=== PATIENT | female | born 1970 | race Two or more races ===

== ENCOUNTER 2020-02-18 02:31 | Emergency (ER) | payer SELFPAY ==
[~2020-02-18] VITALS: Ht 152.4 cm; Wt 60.7 kg
--- NOTE | 2020-02-18 02:55 | PHYS DOC ---
Past Medical History Past Medical History: Hypertension Past Surgical History: No Surgical History Smoking Status: Current Every Day Smoker Alcohol Use: None General Adult EDM: Chief Complaint: MULTIPLE COMPLAINTS HPI: HPI: Patient is a 49 year old female presents to the ED with a chief complaint of racing heart and anxiety. 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 Patient de scribes her symptoms as feeling her pulse in her head and shortness of breath. Patient denies fever, chills, nausea, vomiting, chest pain. Patient states that she is currently on her menstrual cycle. Patient also states that she had an alcoholic drink with her sister and is not sure what it is. Review of Systems: Review of Systems: Constitutional: Denies fever or chills. [] Eyes: Denies change in visual acuity. [] HENT: Denies nasal congestion or sore throat. [] Respiratory: Denies cough or shortness of breath. [] Cardiovascular: Denies chest pain or edema. Complains of palpitations [] GI: Denies abdominal pain, nausea, vomiting, bloody stools or diarrhea. [] : Denies dysuria. [] Psych: Patient complains of anxiety Heart Score: Risk Factors: Risk Factors: DM, Current or recent (<one month) smoker, HTN, HLP, family history of CAD, obesity. Risk Scores: Score 0 - 3: 2.5% MACE over next 6 weeks - Discharge Home Score 4 - 6: 20.3% MACE over next 6 weeks - Admit for Clinical Observation Score 7 - 10: 72.7% MACE over next 6 weeks - Early Invasive Strategies Physical Exam: PE: Constitutional: Well developed, well nourished, no acute distress, non-toxic appearance. [] HENT: Normocephalic, atraumatic Eyes: EOMI Neck: Normal range of motion Cardiovascular:Heart rate regular rhythm Lungs & Thorax: Bilateral breath sounds clear to auscultation [] Abdomen: Bowel sounds normal, soft, no tenderness Extremities: No tenderness, ROM intact Neurologic: Alert and oriented X 3 Current Patient Data: Vital Signs: Vital Signs Date Time Temp Pulse Resp B/P (MAP) Pulse Ox O2 Delivery O2 Flow Rate FiO2 7/8/20 02:42 98.1 95 16 157/69 (98) 100 Room Air 98.1 EKG: EKG: [EKG interpretation: 2: 58 AM on 02/18/2020 HR: 89 Sinus rhythm Regular intervals Normal axis Nonspecific ST changes No STEMI] Radiology/Procedures: Radiology/Procedures: [] Impression: CXR IMPRESSION: No acute cardiopulmonary process. Course & Med Decision Making: Course & Med Decision Making Pertinent Labs and Imaging studies reviewed. (See chart for details) Ordered labs, chest x-ray, EKG, troponin. Currently patient's heart rate is 92 and oxygen saturation is 100% on room air. EKG does not show any acute changes. Chest x-ray does not show any acute disease. Labs show the patient has hemoglobin of 8.6. She also has low hematocrit. Platelets are elevated. Patient does state that she has a history of chronic anemia. Denies blood in her stool or urine Patient states that she is feeling better now. Instructed patient to follow-up with her PCP for further evaluation of her anemia. Patient does state that she has heavy menstrual cycle. We will give patient prescription for iron supplements. Discussed results and plan of care with patient. Patient is instructed to follow up with PCP in one to 2 days. Appropriate discharge instructions given to patient to return to the ED or to seek immediate medical evaluation. Patient is instructed to return to the ED if symptoms worsen or if any concerns. Dragon Disclaimer: Rakesh Disclaimer: This electronic medical record was generated, in whole or in part, using a voice recognition dictation system. Departure Departure Impression: Primary Impression: Chronic anemia Disposition: HOME, SELF-CARE Condition: GOOD Referrals: NO PCP (PCP) Patient Instructions: Anemia, FAQs, Iron Deficiency Anemia Additional Instructions: Discussed results and plan of care with patient. Patient is instructed to follow up with PCP in one to 2 days. Appropriate discharge instructions given to patient to return to the ED or to seek immediate medical evaluation. Patient is instructed to return to the ED if symptoms worsen or if any concerns. Scripts Ferrous Sulfate (FERROUS SULFATE) 325 Mg Tablet 1 TAB PO DAILY, #30 TAB 3 Refills Prov: STEPHANIE DELGADO DO 02/18/20 Justicifation of Admission Dx: Justifications for Admission: Justification of Admission Dx: STEPHANIE Back DO Feb 18, 2020 02:55
--- NOTE | 2020-02-18 03:15 | RAD ---
CHEST AP ONLY INDICATION: Reason: PAIN / Spl. Instructions: / History: . COMPARISON STUDY: None. FINDINGS: Lungs: Normal lung volume. No pulmonary mass or consolidation. The tracheobronchial tree and hilar structures are normal. Pleura: No pleural effusion or pneumothorax. Heart and Mediastinum: The cardiomediastinal silhouette is normal. The great vessels of the thorax are normal. IMPRESSION: No acute cardiopulmonary process. Electronically signed by: Festus Santos MD (02/18/2020 3:12 AM) [facility]
[2020-02-18 03:23] LABS: BASO # 0.1 x10^3/uL (0.0-0.2); BASO % 1 % (0-3); EOS # 0.2 x10^3/uL (0.0-0.7); EOS % 2 % (0-3); HEMATOCRIT 27.9 % (36.0-47.0); HEMOGLOBIN 8.6 g/dL (12.0-15.5); LYMPH # 3.9 x10^3/uL (1.0-4.8); LYMPH % 40 % (24-48); MEAN CORPUSCULAR HEMOGLOBIN 19 pg (25-35); MEAN CORPUSCULAR HGB CONC 31 g/dL (31-37); MEAN CORPUSCULAR VOLUME 61 fL (79-100); MONO # 0.4 x10^3/uL (0.0-1.1); MONO % 4 % (0-9); NEUT # 5.2 x10^3/uL (1.8-7.7); NEUT % 53 % (31-73); PLATELET COUNT 603 x10^3/uL (140-400); RED CELL DISTRIBUTION WIDTH 18.7 % (11.5-14.5); WHITE BLOOD COUNT 9.9 x10^3/uL (4.0-11.0)
[2020-02-18 03:29] LABS: CALCIUM 8.4 mg/dL (8.5-10.1); CREATININE 0.8 mg/dL (0.6-1.0); GFR 76.9; POTASSIUM 3.5 mmol/L (3.5-5.1)
[2020-02-18 03:31] LABS: AMPHETAMINE/METHAMPHETAMINE NEG (NEG); BARBITURATES NEG (NEG); BENZODIAZEPINES NEG (NEG); CANNABINOIDS NEG (NEG); COCAINE NEG (NEG); METHADONE NEG (NEG); OPIATES NEG (NEG); PHENCYCLIDINE NEG (NEG)
[2020-02-18 03:35] LABS: ALBUMIN 3.6 g/dL (3.4-5.0); TOTAL BILIRUBIN 0.3 mg/dL (0.2-1.0); TOTAL PROTEIN 7.2 g/dL (6.4-8.2)
[2020-02-18 03:52] LABS: PLT ESTIMATE INCREASED (ADEQUATE)
[2020-02-18 03:53] LABS: ANISOCYTOSIS SLIGHT; HYPOCHROMIA MARKED; MICROCYTOSIS MARKED; OVALOCYTES FEW; POIKILOCYTOSIS SLIGHT
[2020-02-18 03:54] LABS: HELMET CELLS OCC; POLYCHROMASIA SLIGHT
[2020-02-18] MEDS ORDERED: FERR325T14 PO (03:57)
[2020-02-18 04:00] VITALS: BP 141/73
--- NOTE | 2020-02-18 05:54 | EKG ---
[facility] [address] [place] [address] Test Date: 2020-02-18 Test Time: 02:58:48 Pat Name: PREMA HORTON Department: Room: Gender: F Tightener: : 1970 Requested By: STEPHANIE DELGADO Order Number: [id number] Reading MD: Measurements Intervals [place] Rate: 89 P: 62 VA: 146 QRS: 61 QRSD: 92 T: 46 QT: 390 QTc: 481 Interpretive Statements SINUS RHYTHM PROLONGED QT NO SPECIFIC ECG ABNORMALITIES RI6.02 No previous ECG available for comparison
== END 2020-02-18 04:07 | disposition home or self-care (01) ==
LOC: ER 02:31
DX: D53.9 Nutritional anemia, unspecified (principal); R00.0 Tachycardia, unspecified; R06.02 Shortness of breath; I10 Essential (primary) hypertension; F17.200 Nicotine dependence, unspecified, uncomplicated
CPT/HCPCS: 36415; 71045; 80053; 80307; 84484; 85025; 93005; 99285; G0480